=== PATIENT | female | born 1955 | race Caucasian/White ===

== ENCOUNTER 2016-10-29 19:09 | Emergency (ER) | payer MEDICAID ==
[~2016-10-29] VITALS: Ht 162.6 cm; Wt 73.5 kg
[2016-10-29 19:14] VITALS: BP_SYST 151
[2016-10-29] MEDS ORDERED: FAMOTIDINE PF 20 MG/2 ML VIAL IVP ONE (20:15)
[2016-10-29] MEDS ORDERED: MAG HYDROX/AL HYDROX/SIMETH 30 ML, BELLADONNA ALKALOIDS/PHENOBARB 10 ML, LIDOCAINE VISC... PO ONE ×3 (20:15)
[2016-10-29 20:28] LABS: BASOPHILS # (AUTO) 0.1 K/uL (0.0-0.2); BASOPHILS % (AUTO) 0.6 % (0.0-2.0); EOSINOPHILS # (AUTO) 0.1 K/uL (0.0-0.4); EOSINOPHILS % (AUTO) 1.1 % (0.0-4.0); HEMATOCRIT 38.6 % (36-48); HEMOGLOBIN 12.5 g/dL (12.0-16.0); LYMPHOCYTES # (AUTO) 4.1 K/uL (1.0-5.5); LYMPHOCYTES % (AUTO) 43.1 % (20.5-51.5); MEAN CORPUSCULAR HEMOGLOBIN 30 pg (27-31); MEAN CORPUSCULAR HGB CONC 33 % (32-36); MEAN CORPUSCULAR VOLUME 93 fL (79.0-98.0); MONOCYTES # (AUTO) 0.7 K/uL (0.0-1.0); MONOCYTES % (AUTO) 7.8 % (1.7-9.3); NEUTROPHILS # (AUTO) 4.6 K/uL (1.8-7.7); NEUTROPHILS % (AUTO) 47.4 % (40.0-70.0); PLATELET COUNT (AUTO) 234 K/uL (130-430); RED BLOOD CELL COUNT(AUTO) 4.17 MIL/uL (4.2-6.2); RED CELL DISTRIBUTION WIDTH 11.4 % (9.0-15.0); WHITE BLOOD COUNT (AUTO) 9.6 K/uL (4.8-10.8)
[2016-10-29 20:34] LABS: PROTHROMBIN TIME 10.8 SECS (9.5-12.5)
[2016-10-29 20:45] LABS: CREATININE 0.91 mg/dL (0.55-1.30); POTASSIUM 4.1 mmol/L (3.5-5.1)
[2016-10-29 20:49] LABS: ALBUMIN 3.5 g/dL (3.4-4.8); TOTAL BILIRUBIN 0.2 mg/dL (0.0-1.0); TOTAL PROTEIN, SERUM 7.5 g/dL (6.4-8.3)
[2016-10-29] MEDS ORDERED: HYDROmorphone 1 MG INJ. 1 MG/ML AMPUL IVP ONE (21:00)
[2016-10-29] MEDS ORDERED: IOHEXOL 100 ML IV ONE (21:28)
[2016-10-29] MEDS ORDERED: NACL 0.9% 1,000 ML IV ONE (22:15)
[2016-10-30 23:29] VITALS: BP_SYST 116
== END 2016-10-29 23:40 | disposition home or self-care (01) ==
LOC: SED 19:09
DX: K57.90 Diverticulosis of intestine, part unspecified, without perforation or abscess without bleeding (principal); K59.00 Constipation, unspecified; K21.9 Gastro-esophageal reflux disease without esophagitis; Z90.49 Acquired absence of other specified parts of digestive tract; Z90.89 Acquired absence of other organs; Z90.710 Acquired absence of both cervix and uterus; Z88.6 Allergy status to analgesic agent
CPT/HCPCS: 36415; 74177; 76830; 76857; 80053; 82150; 83690; 85025; 85610; 85730; 93005; 96361; 96374; 96375; 99285; J1170; J2001; J3490; J7030; Q9967

== ENCOUNTER 2016-10-30 21:38 | Inpatient (IN) | payer MEDICAID ==
[~2016-10-30] VITALS: Ht 160 cm; Wt 60.8 kg
--- NOTE | 2016-10-30 11:53 | NUR ---
Spoke to Dr. Suggs regarding patient pain management Dr. jerrod Mitchell 1 mg IVP Q6H PRN for moderate to severe pain (4-10). Addendum: 10/31/16 at 0106 by Maksim Mason RN wrong time, correct time should be @ 2153 on 10/30/2016. Addendum: 10/31/16 at 0107 by Maksim Mason RN correct time @ 6913 on 10/30/2016. KARIN.
[2016-10-30 21:40] VITALS: BP_SYST 161
--- NOTE | 2016-10-30 21:40 | NUR ---
Patient to ER bed 1 to gown for evaluation. Side rails up. Report given to Say ARANGO.
--- NOTE | 2016-10-30 21:48 | NUR ---
ER Dr. Riley at bedside examining patient.
--- NOTE | 2016-10-30 21:50 | NUR ---
Pt was here yesterday for epigastric pain that has came back and has been 10. Pt states that the pain is still having sharp epigastic pain all day, but radiates to the L flank and lower back. Pt states she has nausea with no vomitting or diarrhea. No dysuria. Will continue to monitor via monitoring tech. No other injuries or mentioned/noted.
[2016-10-30 22:09] LABS: BASOPHILS # (AUTO) 0.1 K/uL (0.0-0.2); BASOPHILS % (AUTO) 0.6 % (0.0-2.0); EOSINOPHILS # (AUTO) 0.1 K/uL (0.0-0.4); EOSINOPHILS % (AUTO) 0.8 % (0.0-4.0); HEMOGLOBIN 12.7 g/dL (12.0-16.0); LYMPHOCYTES # (AUTO) 3.7 K/uL (1.0-5.5); LYMPHOCYTES % (AUTO) 45.3 % (20.5-51.5); MEAN CORPUSCULAR HEMOGLOBIN 30 pg (27-31); MEAN CORPUSCULAR HGB CONC 34 % (32-36); MEAN CORPUSCULAR VOLUME 91 fL (79.0-98.0); MONOCYTES # (AUTO) 0.7 K/uL (0.0-1.0); MONOCYTES % (AUTO) 7.9 % (1.7-9.3); NEUTROPHILS # (AUTO) 3.8 K/uL (1.8-7.7); NEUTROPHILS % (AUTO) 45.4 % (40.0-70.0); PLATELET COUNT (AUTO) 253 K/uL (130-430); RED BLOOD CELL COUNT(AUTO) 4.19 MIL/uL (4.2-6.2); RED CELL DISTRIBUTION WIDTH 11.9 % (9.0-15.0); WHITE BLOOD COUNT (AUTO) 8.4 K/uL (4.8-10.8)
[2016-10-30] MEDS ORDERED: MORPHINE 4 MG/ML INJ. SYRINGE IVP ONE ×2 (22:15→23:00)
[2016-10-30] MEDS ORDERED: ONDANSETRON HCL 4 MG/2 ML VIAL IVP ONE (22:15)
[2016-10-30 22:17] LABS: CALCIUM 9.2 mg/dL (8.4-11.0); CREATININE 1.12 mg/dL (0.55-1.30); POTASSIUM 3.7 mmol/L (3.5-5.1)
[2016-10-30 22:22] LABS: ALBUMIN 3.6 g/dL (3.4-4.8); TOTAL BILIRUBIN 0.4 mg/dL (0.0-1.0); TOTAL PROTEIN, SERUM 7.8 g/dL (6.4-8.3)
[2016-10-30 22:29] LABS: BILIRUBIN,URINE NEGATIVE (NEGATIVE); CLARITY/URINE CLEAR (CLEAR); COLOR,URINE YELLOW (YELLOW); GLUCOSE,URINE NEGATIVE (NEGATIVE); KETONES,URINE NEGATIVE (NEGATIVE); LEUKOCYTE ESTERASE ,URINE NEGATIVE (NEGATIVE); NITRITE, URINE NEGATIVE (NEGATIVE); PH,URINE 6.5 (5.0-8.0); PROTEIN URINE NEGATIVE (NEGATIVE); UROBILINOGEN,URINE 0.2 (0.2-1.0)
--- NOTE | 2016-10-30 22:45 | NUR ---
Patient reports pain 9/10 15 minutes after administration of morphine. No adverse reactions noted. Will continue to monitor.
--- NOTE | 2016-10-30 22:50 | NUR ---
Pt states she is still in a lot of pain. Dr. Riley made aware.
[2016-10-30 23:16] LABS: BLOOD, URINE TRACE (NEGATIVE)
[2016-10-30 23:21] LABS: BACTERIA,URINE FEW /HPF (None Seen); MUCUS,URINE None Seen /LPF (None Seen); RBC,URINE 0-3 /HPF (0-3); WBC,URINE 0-3 /HPF (0-3)
--- NOTE | 2016-10-30 23:26 | NUR ---
Patient will be admitted to care of Dr. Suggs. Admitted to Telemetry unit. Will go to room 135. Belongings list completed. Summary report printed. Report will be given at bedside.
--- NOTE | 2016-10-30 23:27 | NUR ---
Initial note A/O x 3, no SOB, c/o epigastric pain, not relived by Morphine. Will contact Dr later. Skin warm to touch, IV at L AC, patent. No skin breakdown. Able to move all extremities. +2 radial or pedal pulses. No edema noted. Clear lung sounds and active bowel sounds. Patient stated she had BM yesterday and today. Will introduce patient to her room once transfer from 135 to [facility].
[2016-10-30 23:48] VITALS: BP_SYST 116
--- NOTE | 2016-10-30 23:53 | NUR ---
Spoke to Dr. Suggs regarding patient pain management ordered Dilaudid 1 mg IVP Q6H PRN for moderate to severe pain (4-10).
--- NOTE | 2016-10-31 | NUR ---
Dilaudid 1 mg IVP given for 01/19 @ epigastric region.
--- NOTE | 2016-10-31 00:20 | NUR ---
Patient stated pain decreased some.
--- NOTE | 2016-10-31 01:00 | NUR ---
Patient stated this medication (Dilaudid) worked. No pain.
--- NOTE | 2016-10-31 01:27 | NUR ---
CONSULT: CONSULT CALLED FOR DR. ZAPATA I SPOKE WITH TANOBIA EXPLORATION ENGINEER 22 DOCTOR ON CALLED: SAMANTHA REASON FOR CONSULT: CHEST PAIN REQUESTING DR: EILEEN NUMBER I CALLED: [phone]
--- NOTE | 2016-10-31 02:14 | NUR ---
Rounds Patient still awake. Informed patient it's too late for sleeping pill. Patient understood and will ask sleeping pill in AM. Patient denied SOB, chest pain, only very mild stomach pain. (05/21). Call light within reach, bed at lowest position, bed alarm on, will continue to monitor patient.
--- NOTE | 2016-10-31 04:00 | NUR ---
Rounds Patient was sleeping but easy to be awaken. Patient denied SOB, denied chest pain, but c/o mild stomach pain, patient is aware of next pain medication will be at 0600. Assisted patient to bathroom for urination. Call light within reach, bed at lowest position, bed alarm on, will continue to monitor patient.
[2016-10-31 04:10] VITALS: BP_SYST 109
[2016-10-31 05:37] VITALS: BP_SYST 109
[2016-10-31] MEDS: HYDROmorphone 1 MG INJ. 1 MG/ML AMPUL IVP PRN ×2 (06:18)
--- NOTE | 2016-10-31 06:18 | NUR ---
C/o abdomen pain 10/10 Dilaudid IVP given.
--- NOTE | 2016-10-31 06:47 | NUR ---
Closing note Patient stated pain decreased a lot after Dilaudid given (2/10). No SOB, no chest pain, mild pain at epigastric region. Skin warm to touch, IV at L AC patent, no s/s of infection. Call light within reach, bed at lowest position, bed alarm on, will give report to incoming nurse.
[2016-10-31 08:15] VITALS: BP_SYST 96
--- NOTE | 2016-10-31 08:15 | NUR ---
Assessment Patient awake, alert, oriented x4. Lungs clear. Respiration even and unlabored Trapeze?. NSR per telemetry monitoring. Patent 20 gauge saline lock in left antecubital. Denies any pain at this time. Patient stable.
--- NOTE | 2016-10-31 09:41 | NUR ---
GI Consult Called: for Dr. Jasso, regarding abdominal pain, ordered by Dr. Suggs, spoke with
[2016-10-31] MEDS ORDERED: ONDANSETRON HCL 4 MG/2 ML VIAL IVP PRN (09:45)
--- NOTE | 2016-10-31 10:45 | NUR ---
Routine Patient resting comfortably in bed. No acute distress noted. Patient stable.
--- NOTE | 2016-10-31 10:57 | NUR ---
ATTENDING MD DR ARELLANO CALLED, RE: CHANGE FREQUENCY OF THE PAIN MED FROM Q6H TO Q4H. SPOKE TO LEONELA
[2016-10-31] MEDS: D5NS 1,000 ML IV SCH (11:41)
[2016-10-31] MEDS ORDERED: HYDROmorphone 1 MG INJ. 1 MG/ML AMPUL IVP PRN (12:15)
[2016-10-31] MEDS ORDERED: HYDROmorphone 1 MG INJ. 1 MG/ML AMPUL ONE (12:25)
--- NOTE | 2016-10-31 12:25 | NUR ---
Routine Patient requested med for 9/10 abdominal pain. Due pain med given per order. Patient stable at this time.
[2016-10-31 12:30] VITALS: BP_SYST 112
--- NOTE | 2016-10-31 15:00 | NUR ---
Routine Patient asleep. No distress noted at this time.
[2016-10-31 16:10] VITALS: BP_SYST 114
--- NOTE | 2016-10-31 17:21 | NUR ---
Routine Patient resting in bed with daughter at bedside. Patient stable.
[2016-10-31] MEDS: HYDROmorphone 1 MG INJ. 1 MG/ML AMPUL IM PRN ×2 (18:02→22:06)
--- NOTE | 2016-10-31 18:05 | NUR ---
Routine Patient requested med for 9/10 abdominal pain. Due pain med given per order. Daughter at bedside. Patient stable throughout shift.
[2016-10-31 19:40] VITALS: BP_SYST 108
--- NOTE | 2016-10-31 19:40 | NUR ---
Initial Notes Pt is A/Ox4, pleasant and cooperative. Pt denies any pain or sob at this time. Pt is mostly Kyrgyz speaking. Pt's daughter is at bedside. Plan of care discussed with pt, pt verbalized understanding. Pt is currently on clear liquids but will be NPO at midnight for planned EGD in am. IV to RAC #20g with no s/s of infection/infiltration noted. VSS. Pt educated manager of administration light and correct back demonstration noted. Pt asked to call Nurse for assistance to restroom and out of bed. Safety measures in place, side rails up x3 with bed in lowest, locked position, bed alarm on at all times. Call light in hand. Will continue to monitor.
--- NOTE | 2016-10-31 19:50 | NUR ---
PAGED PAGED DOCTOR ARELLANO S/Roman DIXON
--- NOTE | 2016-10-31 19:55 | NUR ---
Spoke with MD Suggs Informed MD that pt requesting sleep aid. New order for Restoril 15mg received. New order noted and carried out.
[2016-10-31] MEDS ORDERED: TEMAZEPAM 15 MG CAPSULE PO PRN (20:00)
--- NOTE | 2016-10-31 22:08 | NUR ---
DILAUDID GIVEN Patient c/o mid abdomen pain 12/19, Dilaudid 1mg IVP given as ordered. No acute distress. Safety measure maintained. Call light within reached. Will continue to monitor.
--- NOTE | 2016-10-31 22:36 | NUR ---
REASSESS PAIN Abdomen pain 2/10 at this time. No acute distress. Safety measure maintained. Call light within reached. Continue to monitor.
[2016-11-01] VITALS (7 sets, daily range): BP systolic 98–121
--- NOTE | 2016-11-01 00:01 | NUR ---
Rounds Assisted pt to restroom with steady gait noted. Pt noted to urinate without difficulty. Assisted pt back into bed safely. All needs met at this time. Call light in reach. Will continue to monitor.
[2016-11-01] MEDS: HYDROmorphone 1 MG INJ. 1 MG/ML AMPUL IM PRN ×4 (02:16→18:21)
[2016-11-01] MEDS: D5NS 1,000 ML IV SCH ×2 (05:27→15:45)
--- NOTE | 2016-11-01 05:51 | NUR ---
Rounds/Anxiety Pt noted to have some anxiety, describing it as shakiness and sob. Heart monitor checked and pt is Sinus Rhythm with heart rate of 71 on monitor. Vital signs checked, stable: Blood pressure: 125/75, Heart rate 71, O2 on room air 99%, Afebrile 98.7. Pt stated that she is not anxious about her planned EGD for today but might be related to pain medication received. Las time pt given Dilaudid 1mg IVP for pain was at 0220. Pt states she feels better from talking to me, and vital signs are stable.
--- NOTE | 2016-11-01 06:27 | NUR ---
DILAUDID GIVEN Patient c/o mid abdomen pain 12/19, Dilaudid 1mg IVP given as ordered. No acute distress. Explained the possible side effect such as headache, dizziness. Educated patient to dangle at the bed first before getting up, verbally understanding. Safety measure maintained. Call light within reached. Will continue to monitor.
--- NOTE | 2016-11-01 06:35 | NUR ---
Closing Notes Pt resting in bed. No acute distress noted. Pt medicated earlier for abdominal pain 12/19 with pain medication ordered. IV intact. All needs met throughout shift. Will endorse care to am nurse.
[2016-11-01 06:36] LABS: BASOPHILS % (AUTO) 0.4 % (0.0-2.0); EOSINOPHILS # (AUTO) 0.1 K/uL (0.0-0.4); EOSINOPHILS % (AUTO) 1.6 % (0.0-4.0); HEMATOCRIT 33.8 % (36-48); HEMOGLOBIN 11.5 g/dL (12.0-16.0); LYMPHOCYTES # (AUTO) 3.4 K/uL (1.0-5.5); MEAN CORPUSCULAR HEMOGLOBIN 31 pg (27-31); MEAN CORPUSCULAR HGB CONC 34 % (32-36); MEAN CORPUSCULAR VOLUME 92 fL (79.0-98.0); MONOCYTES # (AUTO) 0.7 K/uL (0.0-1.0); MONOCYTES % (AUTO) 9.3 % (1.7-9.3); NEUTROPHILS # (AUTO) 3.3 K/uL (1.8-7.7); NEUTROPHILS % (AUTO) 44.7 % (40.0-70.0); PLATELET COUNT (AUTO) 204 K/uL (130-430); RED BLOOD CELL COUNT(AUTO) 3.68 MIL/uL (4.2-6.2); RED CELL DISTRIBUTION WIDTH 11.3 % (9.0-15.0); WHITE BLOOD COUNT (AUTO) 7.5 K/uL (4.8-10.8)
[2016-11-01 06:59] LABS: ALBUMIN 2.9 g/dL (3.4-4.8); CALCIUM 8.2 mg/dL (8.4-11.0); CREATININE 0.9 mg/dL (0.55-1.30); POTASSIUM 3.7 mmol/L (3.5-5.1); TOTAL BILIRUBIN 0.3 mg/dL (0.0-1.0); TOTAL PROTEIN, SERUM 6.5 g/dL (6.4-8.3)
--- NOTE | 2016-11-01 08:00 | NUR ---
NOTE PT RESTING IN BED WITH IVF'S INFUSING WELL THROUGH LEFT AC IV SITE. NO SOB/RESP DISTRESS OR PAIN/DISCOMFORT NOTED AT THIS TIME. CALL LIGHT WITHIN REACH.
[2016-11-01] MEDS ORDERED: MIDAZOLAM HCL 5 MG/5 ML VIAL ONE (09:18)
[2016-11-01] MEDS ORDERED: MEPERIDINE HCL/PF 50 MG/ML AMP ONE ×2 (09:19→11:20)
[2016-11-01] MEDS ORDERED: SIMETHICONE 40 MG/0.6 ML ML ONE (09:19)
--- NOTE | 2016-11-01 10:00 | NUR ---
NOTE PT HAS BEEN NPO SINCE MIDNIGHT FOR EGD STUDY THIS MORNING. PT RESTING IN BED. NO NEEDS NOTED AT THIS TIME. CALL LIGHT WITHIN REACH.
[2016-11-01] MEDS: MIDAZOLAM HCL 5 MG/5 ML VIAL ONE ×2 (11:53→12:56)
[2016-11-01] MEDS: MEPERIDINE HCL/PF 50 MG/ML AMP ONE ×2 (11:56→12:56)
--- NOTE | 2016-11-01 12:00 | NUR ---
NOTE PT WAS TAKEN TO GI LAB FOR EGD VIA WHEELCHAIR AT 1100AM AND BROUGHT BACK TO HER ROOM 1150AM. PT DROWSY AND WAS ASSISTED TO THE RESTROOM ON CAOMING BACK TO THE ROOM TO VOID. IV IN LEFT AC INTACT AND PATENT. CALL LIGHT WITHIN REACH. PT INSTRUCTED TO CALL FOR ASSISTANCE WHEN GETTING OOB TO RESTROOM. PT VERBALISES UNDERSTANDING. PT HAS CLEAR LIQUID TRAY IN FRONT OF HER AT THIS TIME, STATES THAT IS ALL SHE CAN TOLERATE AT THIS TIME. CALL LIGHT WITHIN REACH.
[2016-11-01] MEDS ORDERED: PANTOPRAZOLE SODIUM 40 MG TAB PO ONE (13:00)
--- NOTE | 2016-11-01 14:00 | NUR ---
NOTE PT WAS GIVEN MORPHINE 2MG IVP AT THIS TIME FOR ABDOMINAL PAIN. PT RESTING IN BED AND NO SOB/RESP DISTRESS OR PAIN/DISCOMFORT NOTED AT THIS TIME. CALL LIGHT WITHIN REACH.
--- NOTE | 2016-11-01 16:00 | NUR ---
NOTE PT STATED HER RIDE WILL COME IN LATE, SHE HAS NO ONE ELSE TO GIVE HER RIDE HOME AT THIS TIME. PT WILL TRY SOFT BLAND/LOW FIBRE DIET FOR DINNER. SO FAR ALL PT HAS BEEN ABLE TO TOLERATE IS JUICES AND BROTH. NO N/V NOTED. CALL LIGHT WITHIN REACH. TELE UNIT HAD BEEN REMOVED AND RETURNED TO ELECTRICIAN JOURNEYMAN WIREMAN.
--- NOTE | 2016-11-01 18:30 | NUR ---
NOTE PT WAS GIVEN DISCHARGE INSTRUCTIONS AND PRESCRIPTION FOR PROTONIX PO. PT AND PT'S DAUGHTER NOW SAY PT IS IN TOO MUCH PAIN TO GO HOME NOW. PT HAD A BITE OR TWO OF SOLID FOOD FOR DINNER AND EXPERIENCED SEVERE ABDOMINAL PAIN. DR ARELLANO WAS CALLED PER PT'S AND PT'S DAUGHTER'S REQUEST.
[2016-11-01] MEDS ORDERED: DIATR MEGLU/DIATRIZ SOD 30 ML SOLUTION PO ONE (19:31)
--- NOTE | 2016-11-01 19:40 | NUR ---
NOTE DR ARELLANO CALLED BACK. DISCHARGE TO BE HELD AND CT OF ABDOMEN/PELVIS WITH ORAL CONTRAST WAS ORDERED. PT AND PT'S DAUGHTER WAS NOTIFIED. PT HAD BEEN GIVEN DILAUDID 1MG IVP AT 1730. PAIN NOW MANAGEABLE. NO SOB/RESP DISTRESS OR PAIN/DISCOMFORT NOTED AT THIS TIME. CALL LIGHT WITHIN REACH. PT IS DRESSED IN STREET CLOTHES AT THIS TIME. PT STILL HAS HER LEFT AC IV - WHICH IS INTACT AND PATENT AT THIS TIME.
--- NOTE | 2016-11-01 19:50 | NUR ---
INITIAL NOTE PT. RECEIVED ALERT AND ORIENTED, NO S/S OF SOB OR DISTRESS NOTED. VSS. PT. STATES PAIN MEDICATION GIVEN BY DAY NURSE WAS EFFECTIVE IN REDUCING HER PAIN LEVEL. NOW RATES PAIN AT A 5/10. ENCOURAGED PT. TO USE DEEP BREATHING AND RELAXATION TECHNIQUES. IV ACCESS NOTED TO LEFT AC, NO REDNESS OR SWELLING TO THE SITE. FLUSHES WELL. DAUGHTER IS AT THE BEDSIDE. PLAN OF CARE HAS BEEN DISCUSSED, BOTH VERBALIZE UNDERSTANDING. EDUCATED PT. ON USE OF THE CALL LIGHT SYSTEM AND ENCOURAGED TO USE IT IF ANY ASSISTANCE IS NEEDED. VERBALIZES UNDERSTANDING. WILL CONTINUE TO MONITOR FRO CHANGES. SAFETY AND FALL PRECAUTIONS IN PLACE. CALL LIGHT IN REACH. ALARM IS NOT ON THIS TIME DAUGHTER IS PRESENT AT THE BEDSIDE AND STATES SHE WILL BE HERE TO ASSIST. WILL TURN ON THE ALARM WHEN THE DAUGHTER LEAVES FOR SAFETY AND FALL PRECAUTIONS.
--- NOTE | 2016-11-01 21:02 | NUR ---
RN NOTES PT. IN RADIOLOGY FOR CT SCAN.
--- NOTE | 2016-11-01 21:14 | NUR ---
RN NOTES PT. BROUGHT BACK BY BRIDAL SALES CONSULTANT. RESTING IN BED COMFORTABLY AT THIS TIME. DAUGHTER AT THE BEDSIDE.
--- NOTE | 2016-11-01 22:35 | NUR ---
ROUNDS PT. STATES SHE IS HAVING SEVERE PAIN AT THIS TIME. WILL MEDICATE FOR PAIN ORDERED. ALL OTHER NEEDS MET AT THIS TIME. IV FLUIDS INFUSING WELL ORDERED. SAFETY AND FALL PRECAUTIONS IN PLACE, CALL LIGHT IN REACH.
--- NOTE | 2016-11-01 22:55 | NUR ---
rn note- medication dilaudid 1 mg was given at 2255 computer did not save scan. manually entered barcode on computer.
[2016-11-02] VITALS (8 sets, daily range): BP systolic 101–128
--- NOTE | 2016-11-02 00:20 | NUR ---
ROUNDS PT. AMBULATED TO THE RESTROOM WITH STEADY GAIT. BACK TO BED IN A COMFORTABLE POSITION. NO SIGNS OF ACUTE DISTRESS NOTED. STATES PAIN MEDICATION WAS EFFECTIVE IN REDUCING PAIN LEVEL. ALL NEEDS MET AT THIS TIME. WILL CONTINUE TO MONITOR FOR CHANGES. SAFETY AND FALL PRECAUTIONS IN PLACE. CALL LIGHT IN REACH.
--- NOTE | 2016-11-02 02:10 | NUR ---
rounds pt. resting in bed with eyes closed. chest rise and fall noted. no s/s of sob or distress. no facial grimacing indicating pain. iv fluids continue to infuse well. will continue to monitor for any changes. safety and fall precautions in place. call light in reach.
[2016-11-02] MEDS: HYDROmorphone 1 MG INJ. 1 MG/ML AMPUL IVP PRN ×5 (03:09→18:53)
[2016-11-02] MEDS: D5NS 1,000 ML IV SCH ×3 (03:20→16:17)
--- NOTE | 2016-11-02 04:10 | NUR ---
ROUNDS PATIENT RESTING IN BED WITH EYES CLOSED. EASILY AROUSES. VSS. PAIN MEDICATION WAS GIVEN FOR PAIN. PT. COMFORTABLE AT THIS TIME. WILL CONTINUE TO MONITOR FOR CHANGES. SAFETY AND FALL PRECAUTIONS IN PLACE. CALL LIGHT IN REACH.
--- NOTE | 2016-11-02 06:36 | NUR ---
CLOSING NOTES PT. RESTING IN BED QUIETLY. NO S/S OF SOB OR DISTRESS NOTED. NO FACIAL GRIMACING INDICATING PAIN. BREATHING IS EVEN AND UNLABORED. IV FLUIDS CONTINUE TO INFUSE WELL WITH NO SIGNS OF INFILTRATION TO THE IV SITE. ALL NECESSARY NEEDS WERE MET THROUGHOUT THE SHIFT. SAFETY AND FALL PRECAUTIONS WERE MAINTAINED. WILL ENDORSE CARE TO AM NURSE. CALL LIGHT IN REACH, BED IN LOWEST LOCKED POSITION.
--- NOTE | 2016-11-02 07:44 | NUR ---
Nutrition Update Pablo Scale 18 noted. Pt admitted for: Chest pain. Diet: Soft Low fiber [place] diet. BMI: 23.7 kg/m2 RD to follow per nutrition care standards.
--- NOTE | 2016-11-02 08:00 | NUR ---
AM notes- sitting in a chair. pt awake, alert and oriented. complain of mild abdominal pain at this time. ambulate to the bathroom with steady gait. ivf infusing well. no distress noted.
[2016-11-02] MEDS: PANTOPRAZOLE SODIUM 40 MG TAB PO SCH (08:33)
--- NOTE | 2016-11-02 10:21 | NUR ---
notes- resting in bed, pain better afetr pain medication.
--- NOTE | 2016-11-02 10:48 | NUR ---
UROLOGY CONSULT CALLED TO FREDA PAT PUNCH OPERATOR, RE: AIR IN BLADDER, NO ESPINOZA. SPOKE TO ZACK
--- NOTE | 2016-11-02 11:17 | NUR ---
notes- spoke to Dr. devin hernandez (PA) made aware of consult and ct result. Ordered to do UA and UC.
[2016-11-02 12:39] LABS: BILIRUBIN,URINE NEGATIVE (NEGATIVE); BLOOD, URINE 1+ (NEGATIVE); CLARITY/URINE CLEAR (CLEAR); COLOR,URINE YELLOW (YELLOW); GLUCOSE,URINE NEGATIVE (NEGATIVE); KETONES,URINE NEGATIVE (NEGATIVE); LEUKOCYTE ESTERASE ,URINE TRACE (NEGATIVE); NITRITE, URINE NEGATIVE (NEGATIVE); PROTEIN URINE NEGATIVE (NEGATIVE); UROBILINOGEN,URINE 0.2 (0.2-1.0)
[2016-11-02 12:54] LABS: BACTERIA,URINE FEW /HPF (None Seen); MUCUS,URINE 1+ /LPF (None Seen)
--- NOTE | 2016-11-02 14:49 | NUR ---
rounds- Resting in bed at this time. no distress noted. pain controlled at this time.
--- NOTE | 2016-11-02 14:50 | NUR ---
notes- sitting in the chair, family at bedside. complain of moderate back pain and on her rt leg. routine pain meds given.
[2016-11-02] MEDS ORDERED: IOHEXOL 100 ML IV ONE (17:55)
--- NOTE | 2016-11-02 18:17 | NUR ---
1730- iv is leaking started a new one on the right ac no. 20. 1800- Pt went to Ct scan. no distress noted.
--- NOTE | 2016-11-02 19:04 | NUR ---
closing notes- In bed awake, complain of pain. medicated as ordered. ivf infusing well. enc. to call at all times. no distress noted. all needs meet. will endorse
--- NOTE | 2016-11-02 19:30 | NUR ---
opening note report given at bedside. Patient is awake and laying in bed. patient has call light with her. patient has no other needs at this time. pain was reassessed and imputed. Addendum: 11/03/16 at 0749 by Bri Johnson RN INITIAL NOTE PT LAYING IN BED, RESTING, EASY TO AROUSE, BREATHING EVEN AND UNLABORED, NO S/S OF DISTRESS OR COMPLAINT OF PAIN AT THIS TIME, IV FLUIDS INFUSING TO RAC AT ORDERED RATE, NO S/S OF INFILTRATION NOTED, PLAN OF CARE, DISCUSSED, PT VERBALIZED UNDERSTANDING, SAFETY MEASURES IN PLACE, PT REFUSES BED ALARM AT THIS TIME DESPITE EDUCATION REGARDING PAIN MEDICATION, BED IN LOS POSITION AND LOCKED WILL FOLLOW UP
--- NOTE | 2016-11-02 20:38 | NUR ---
FREDA Hammond at beside Mr.Pike BARBA in with patient states we are pending labs. patient is awake and sitting in bed.Patient is requesting bed alarm to be off.
--- NOTE | 2016-11-02 21:00 | NUR ---
bladder scan Patient stating that she feels like she is retaining urine. Bladder scan done 233 ml showed retained. Educated to stay hydrated and increase fluid intake and we will continue to monitor her urine out out. Addendum: 11/02/16 at 2342 by Buffy Reilly RN please disregard note wrong patient
--- NOTE | 2016-11-02 21:15 | NUR ---
PAGING Paging attending MD to report pt.'s "09/18" pain to abdomen and right lower back at this time. Will wait for MD to call back to request for orders. Addendum: 11/02/16 at 2124 by Rosemary Gamino RN PAGING Paging DR. BUTLER who is covering for DR. ARELLANO to report pt.'s "10" pain to abdomen and right lower back at this time. Will wait for MD to call back to request for orders.
--- NOTE | 2016-11-02 21:19 | NUR ---
paged paged for Dr Suggs, dialed . s/w Melissa, Dr Fregoso is on-call.
--- NOTE | 2016-11-02 21:34 | NUR ---
PATIENT C/O SEVERE PAIN Patient is now moaning and groaning complaining of severe "10/10" pain. Will wait for MD to call back to notify and request for orders.
--- NOTE | 2016-11-02 21:39 | NUR ---
paged second page for Dr Fregoso, dialed . s/w Chante, Dr Fregoso is on-call for Dr Suggs.
--- NOTE | 2016-11-02 21:47 | NUR ---
SPOKE TO DR. FREGOSO WITH NEW ORDERS RECEIVED Reported patient's current "10/10" pain to Dr. Fregoso. Reported patient's current order for Dilaudid 1mg IVP as ordered PRN every four hours for severe 7-[address] Fregoso gave new orders: Dilaudid 2mg IVP every four hours as needed for severe 7-10 pain and Dilaudid 1mg IVP every six hours as needed for 4-6 pain. Will carry out.
[2016-11-02] MEDS ORDERED: HYDROmorphone 1 MG INJ. 1 MG/ML AMPUL IVP PRN (22:00)
[2016-11-02] MEDS: HYDROmorphone 2 MG/ML VIAL IVP PRN (22:05)
--- NOTE | 2016-11-02 22:05 | NUR ---
Pain medication Patient is stating pain level is 10/10 medicated as ordered please see Emar. Patient is still refusing bed alarm, educated on safety and to use the call light for assistance to restroom. patient verbalized understanding.
--- NOTE | 2016-11-02 22:35 | NUR ---
Re assessed pain level Patient states pain has improved now is 4/10. Patient also states she is experiencing some vision changed assessed her pupils patients pupils are PERRLA printed out and educated on side effects of pain medication. informed patient will monitor and educated to use call light for assistance.
--- NOTE | 2016-11-03 00:35 | NUR ---
RN rounding Patient appears to be resting. Patients breathing is equal and unlabored. Patient is still refusing to have bed alarm. Educed patient on safety and to use call light for assistance patient verbalized understanding,
[2016-11-03] MEDS: HYDROmorphone 2 MG/ML VIAL IVP PRN ×5 (02:24→22:01)
--- NOTE | 2016-11-03 02:35 | NUR ---
pain medication Patient states pain is 9/10. Medicated as ordered. Educated patient to use call light for assistance , patient is still refusing to have bed alarm on.
--- NOTE | 2016-11-03 02:54 | NUR ---
ROUNDS Patient is resting quietly in bed with no s/s of acute distress. Respirations are even and unlabored with visible chest rise and fall. Safety precautions in place. Bed alarm remains off as requested by patient but patient has been educated and is encouraged regarding fall risk precautions due to medications. Call light to right hand. IVF are infusing as ordered. Will continue to monitor.
[2016-11-03] MEDS: D5NS 1,000 ML IV SCH ×2 (03:41→15:24)
[2016-11-03 04:15] VITALS: BP_SYST 107
--- NOTE | 2016-11-03 05:40 | NUR ---
Pain medication Patient was assisted to bathroom. Patient is stating should would like something for her pain that is 10/19 medicated as ordered please see emar. Educated on safety precautions. Addendum: 11/03/16 at 0542 by Buffy Reilly RN patient is still refusing bed alarm
--- NOTE | 2016-11-03 06:44 | NUR ---
closing note Patient appears to be resting, breathing is unlabored and equal with eyes closed. Patient still refuses to have bed alarm on, bed is in lowest position. Report will endorse to day nurse.
--- NOTE | 2016-11-03 08:00 | NUR ---
OPENING NOTE PT LAYING IN BED, EASY TO AROUSE, NO S/S OF DISTRESS OR PAIN AT THIS TIME, VSS, IV FLUIDS INFUSING TO RAC, NO S/S OF INFILTRATION NOTED, SAFETY MEASURES IN PLACE, CALL LIGHT WITHIN REACH, WILL FOLLOW UP
[2016-11-03 08:04] VITALS: BP_SYST 108
[2016-11-03] MEDS: PANTOPRAZOLE SODIUM 40 MG TAB PO SCH (08:11)
--- NOTE | 2016-11-03 09:15 | NUR ---
PATIENT COMPLAINS OF PAIN 10/10 TO ABDOMEN, PAIN MEDICATION ADMINISTERED FOR THAT PAIN LEVEL, WILL FOLLOW UP. PT ENCOURAGED TO CALL FOR ASSISTANCE DUE TO PAIN MEDICATION ADMINISTRATION, PT VERBALIZED UNDERSTANDING BUT REFUSED BED ALARM DESPITE EDUCATION, SAFETY MEASURES IN PLACE, CALL LIGHT WITHIN REACH, WILL FOLLOW UP
--- NOTE | 2016-11-03 11:20 | NUR ---
ROUNDS PT LAYING IN BED, RESTING, EVEN RISE AND FALL OF CHEST NOTED, NO S/S OF ACUTE DISTRESS OR PAIN, VSS, SAFETY MEASURES IN PLACE, CALL LIGHT WITHIN REACH, WILL CONTINUE TO MONITOR
[2016-11-03 12:06] VITALS: BP_SYST 93
--- NOTE | 2016-11-03 12:30 | NUR ---
DR BUTLER MAKING ROUNDS, UPDATES ON PATIENT STATUS AND PT ASSESSED, NEW ORDER RECEIVED, PATIENT MADE AWARE AND VERBALIZED UNDERSTANDING, WILL CONTINUE TO MONITOR
[2016-11-03] MEDS ORDERED: IOHEXOL 100 ML IV ONE (14:20)
--- NOTE | 2016-11-03 14:30 | NUR ---
DR BUTLER AND GLASSWORKER AGREED TO POSTPONE DIAGNOSTIC PROCEDURE UNTIL TOMORROW, PATIENT AND FAMILY MADE AWARE, DAUGHTER AT BEDSIDE, FAMILY UPDATED BY DR BUTLER ON PATIENTS STATUS AND PLAN OF CARE, FAMILY VERBALIZED UNDERSTANDING AND AIDED IN TRANSLATION, WILL CONTINUE TO MONITOR
[2016-11-03 16:19] VITALS: BP_SYST 112
--- NOTE | 2016-11-03 16:19 | NUR ---
ROUNDS PT LAYING IN BED RESTING, EVEN RISE AND FALL OF CHEST NOTED, NO S/S OF DISTRESS OR PAIN, CALL LIGHT WITHIN REACH, BED IN LOW POSITION AND LOCKED, WILL CONTINUE TO MONITOR
--- NOTE | 2016-11-03 18:25 | NUR ---
PT COMPLAINS OF PAIN 10/10 TO ABDOMEN AND BACK PAIN MEDICATION ADMINISTERED, PAT TOLERATED, DAUGHTER AT BEDSIDE, PT ENCOURAGED TO CALL FOR ASSISTANCE DUE TO PAIN AND MEDICATION, PT AGREED BUT REFUSED BED ALARM, SAFETY MEASURES IN PLACE CALL LIGHT WITHIN REACH, BED IN LOW POSITION AND LOCKED, WILL CONTINUE TO MONITOR
--- NOTE | 2016-11-03 18:42 | NUR ---
CLOSING NOTE PT LAYING IN BED, FAMILY AT BEDSIDE, PT AWAKE, ALERT AND ORIENTED, PAIN MEDICATION WAS RECENTLY ADMINISTERED, PT DENIES ANY PAIN AT THIS TIME, IV FLUIDS INFUSING TO RAC AT ORDER RATE, NO S/S OF INFILTRATION NOTED, ALL NEEDS ATTENDED TO THROUGHOUT SHIFT, SAFETY MEASURES MAINTAINED, PT REFUSES BED ALARM DESPITE EDUCATION, BED IN LOW POSITION AND LOCKED, CALL LIGHT WITHIN REACH, WILL GIVE REPORT TO FOLLOWING SHIFT.
--- NOTE | 2016-11-03 19:47 | NUR ---
OPENING NOTE REPORT WAS ENDORSED BY DAY NURSE AT BEDSIDE. PATIENT IS AWAKE AND LAYING IN BED. BED IN LOWEST POSITION, CALL LIGHT IS WITH PATIENT.
--- NOTE | 2016-11-03 20:24 | NUR ---
PAGED PAGED TERESSA BLACKMAN AT [phone]REZVANI DSOUZA FARHAD SAFETY INSPECTOR.
--- NOTE | 2016-11-03 20:26 | NUR ---
PAGING DR. FREGOSO Paging Dr. Fregoso to report patient's order for Dilaudid 2mg IVP as needed every three hours for "4-10" pain does not meet hospital policy. Will wait for MD to call back and request clarification of order.
--- NOTE | 2016-11-03 20:44 | NUR ---
SPOKE TO DR. FREGOSO WITH NEW ORDERS RECEIVED Spoke to Dr. Fregoso and reported current order for Dilaudid 2mg IVP every three hours as needed for pain of 4-10 does not meet hospital policy for pain management. Dr. Fregoso okayed and ordered: Dilaudid 2mg IVP every three hours as needed for severe 7-10 pain. Will carry out.
--- NOTE | 2016-11-03 21:40 | NUR ---
consent Patient is awake and laying in bed. Patients consent was signed and placed in chart. Patient verbalized understanding no questions at this time, and states she was educated on procedure. Patient is still refusing bed alarm at this time educated on safety precautions and to use call light for assistance.
[2016-11-03 21:45] VITALS: BP_SYST 105
--- NOTE | 2016-11-03 22:00 | NUR ---
Pain medication Patient is complain of severe pain at this time. Medicated as order please see EMAR. Patient was educated on safety precautions. Patient is refusing bed alarm on. Educated recreational sports director light for assistance. Patients bed is in lowest position, call light is with patient.
[2016-11-03 23:34] VITALS: BP_SYST 109
--- NOTE | 2016-11-04 | NUR ---
NPO Patient was informed she is Nothing by mouth after midnight for testing tomorrow. All fluids and food removed from bed side table.Patient appears tracy resting at this time with eyes closed, breathing is not labored and equal. No other needs at this time.
[2016-11-04] MEDS: D5NS 1,000 ML IV SCH ×3 (00:26→21:30)
--- NOTE | 2016-11-04 01:40 | NUR ---
RN rounding Patient appears to be resting with eyes closed, breathing is equal and unlabored. Patient has bed in lowest position, call light is with patient,patient is refusing bed alarm.
[2016-11-04] MEDS: HYDROmorphone 2 MG/ML VIAL IVP PRN ×4 (03:21→23:58)
--- NOTE | 2016-11-04 03:26 | NUR ---
PAIN MEDICATION PATIENT REQUESTING PAIN MEDICATION. PATIENT STATES PAIN IS 10/10 MEDICATED ORDERED. PATIENT IS LAYING IN BED AWAKE, BED IN LOWEST POSITION, REFUSING BED ALARM TO BE ON. DISTRICT MEDICAL EXAMINER AT BEDSIDE DOING VITALS.
[2016-11-04 03:58] VITALS: BP_SYST 102
--- NOTE | 2016-11-04 04:39 | NUR ---
IV PUMP PATIENT CALLED FOR IV PUMP BEEPING FLUSHED LINE. PATIENT IS AWAKE AND LAYING IN BED, REFUSING BED ALARM AT THIS TIME, BED IN LOWEST POSITION, CALL LIGHT IS WITH PATIENT.
[2016-11-04 06:45] LABS: BASOPHILS % (AUTO) 0.4 % (0.0-2.0); EOSINOPHILS # (AUTO) 0.2 K/uL (0.0-0.4); EOSINOPHILS % (AUTO) 2.6 % (0.0-4.0); HEMATOCRIT 34.5 % (36-48); HEMOGLOBIN 11.4 g/dL (12.0-16.0); LYMPHOCYTES # (AUTO) 2.4 K/uL (1.0-5.5); LYMPHOCYTES % (AUTO) 36.2 % (20.5-51.5); MEAN CORPUSCULAR HEMOGLOBIN 30 pg (27-31); MEAN CORPUSCULAR HGB CONC 33 % (32-36); MEAN CORPUSCULAR VOLUME 91 fL (79.0-98.0); MONOCYTES # (AUTO) 0.6 K/uL (0.0-1.0); NEUTROPHILS # (AUTO) 3.5 K/uL (1.8-7.7); NEUTROPHILS % (AUTO) 51.8 % (40.0-70.0); PLATELET COUNT (AUTO) 211 K/uL (130-430); RED BLOOD CELL COUNT(AUTO) 3.79 MIL/uL (4.2-6.2); RED CELL DISTRIBUTION WIDTH 11.2 % (9.0-15.0); WHITE BLOOD COUNT (AUTO) 6.7 K/uL (4.8-10.8)
--- NOTE | 2016-11-04 06:51 | NUR ---
closing note Patient is awake laying in bed. Patient is stable breathing is unlabored and even. Patients IV site was reinforced with tape. Educated on safety precautions. Patient has bed in lowest position, patient is refusing bed alarm. Report will be endorse to day nurse at bedside.
[2016-11-04 07:06] LABS: ALBUMIN 2.8 g/dL (3.4-4.8); CALCIUM 8.7 mg/dL (8.4-11.0); CREATININE 0.82 mg/dL (0.55-1.30); TOTAL BILIRUBIN 0.2 mg/dL (0.0-1.0); TOTAL PROTEIN, SERUM 6.9 g/dL (6.4-8.3)
--- NOTE | 2016-11-04 07:16 | NUR ---
OPENING NOTE RECEIVED REPORT FROM PROCESS STEWARD NURSE. PATIENT IS RESTING COMFORTABLY, NO COMPLAINTS OF PAIN AT THIS TIME. PATIENT HAS NO NOTABLE SIGNS OF DISTRESS AT THIS TIME. PATIENT AWAITING CTA OF ABDOMEN FOR PAIN AFTER EATING. PATIENT NPO FOR THIS EXAM. CONSENT IS SIGNED AND IN THE CHART WHEN READY. PATIENTS BED IN LOWEST POSITION, CALL LIGHT WITHIN REACH, AND SIDE RAILS ARE UP FOR SAFETY. WILL CONTINUE TO MONITOR PATIENT FOR CHANGES IN STATUS.
[2016-11-04 08:41] VITALS: BP_SYST 116
--- NOTE | 2016-11-04 09:16 | NUR ---
NOTE PATIENTS 0900 MEDICATIONS HELD UNTIL AFTER CTA OF ABDOMEN. NPO FOR TEST.
--- NOTE | 2016-11-04 10:25 | NUR ---
1000 NOTE PATIENT IS RESTING COMFORTABLY, NO COMPLAINTS OF PAIN AT THIS TIME. PATIENT HAS NO NOTABLE SIGNS OF DISTRESS AT THIS TIME. PATIENT AWAITING CTA OF ABDOMEN FOR PAIN AFTER EATING. PATIENT NPO FOR THIS EXAM. CONSENT IS SIGNED AND IN THE CHART WHEN READY. PATIENTS BED IN LOWEST POSITION, CALL LIGHT WITHIN REACH, AND SIDE RAILS ARE UP FOR SAFETY. WILL CONTINUE TO MONITOR PATIENT FOR CHANGES IN STATUS.
--- NOTE | 2016-11-04 11:54 | NUR ---
1200 NOTE PATIENT IS RESTING COMFORTABLY, COMPLAINTS OF PAIN AT 9/10, MEDICATED FOR PAIN, REASSESSED AT 5/10, TOLERABLE AT THIS TIME PER PATIENT. PATIENT HAS NO NOTABLE SIGNS OF DISTRESS AT THIS TIME. PATIENT AWAITING CTA OF ABDOMEN FOR PAIN AFTER EATING. PATIENT NPO FOR THIS EXAM. CONSENT IS SIGNED AND IN THE CHART WHEN READY. PATIENTS BED IN LOWEST POSITION, CALL LIGHT WITHIN REACH, AND SIDE RAILS ARE UP FOR SAFETY. WILL CONTINUE TO MONITOR PATIENT FOR CHANGES IN STATUS.
[2016-11-04 12:00] VITALS: BP_SYST 120
--- NOTE | 2016-11-04 14:30 | NUR ---
1400 NOTE PATIENT IS RESTING COMFORTABLY, COMPLAINTS OF PAIN AT 9/10, MEDICATED FOR PAIN, REASSESSED AT 5/10, TOLERABLE AT THIS TIME PER PATIENT. PATIENT HAS NO NOTABLE SIGNS OF DISTRESS AT THIS TIME. RADIOLOGY WAS CALLED REGARDING CTA, PATIENT CTA WAS CANCELLED AFTER DR. MALIK AND DR. BUTLER SPOKE. PATIENT AWARE. PATIENT MET WITH DR. TAMAYO. DIET ORDER WAS CHANGED TO SOFT/ LOW FIBER DIET. PATIENTS BED IN LOWEST POSITION, CALL LIGHT WITHIN REACH, AND SIDE RAILS ARE UP FOR SAFETY. WILL CONTINUE TO MONITOR PATIENT FOR CHANGES IN STATUS.
--- NOTE | 2016-11-04 15:29 | NUR ---
NOTE PATIENT FAMILY STATES PATIENT HAS NOT EATEN, WOULD LIKE FOOD SOON POSSIBLE. PATIENTS ORDERS ARE FOR SOFT LOW FIBER DIET PLACED BY DR. TAMAYO. PATIENT PROVIDED WITH APPLESAUCE AND JELLO, DIETARY CALLED FOR EARLY TRAY. WILL FOLLOW UP.
[2016-11-04 16:00] VITALS: BP_SYST 123
--- NOTE | 2016-11-04 16:25 | NUR ---
1600 NOTE PATIENT IS RESTING COMFORTABLY, PATIENT IS SLEEPING. PATIENT HAS NO NOTABLE SIGNS OF DISTRESS AT THIS TIME. DIET ORDER WAS CHANGED TO SOFT/ LOW FIBER DIET. PATIENT RECEIVED DINNER TRAY, AND SNACKS. PATIENTS BED IN LOWEST POSITION, CALL LIGHT WITHIN REACH, AND SIDE RAILS ARE UP FOR SAFETY. WILL CONTINUE TO MONITOR PATIENT FOR CHANGES IN STATUS.
[2016-11-04] MEDS: SUCRALFATE 1 GM TABLET PO SCH ×3 (17:00→21:29)
[2016-11-04] MEDS: PANTOPRAZOLE SODIUM 40 MG TAB PO SCH (18:07)
--- NOTE | 2016-11-04 19:20 | NUR ---
CLOSING NOTE/COMPLAINT FROM DAUGHTER PATIENT COMPLAINING OF PAIN AT 10/10 IN THE UPPER ABDOMEN. MEDICATED WITH DILAUDID FOR PAIN MANAGEMENT. DAUGHTER WANTED TO KNOW WHAT HER MOTHERS PLAN OF CARE WAS. IT WAS DISCUSSED ABOUT THE MEDICATION WE HAVE PROVIDED HER MOTHER FOR HER STOMACH PAIN. PATIENTS DAUGHTER STATES THAT SHE FEELS THOUGH HER MOTHER IS THE SAME SHE WAS 5 DAYS AGO WHEN SHE WAS ADMITTED AND THAT NOT ENOUGH HAS BEEN DONE EXCEPT GIVING MEDICATIONS FOR PAIN. WE DISCUSSED THE TESTING THAT SHE HAS RECEIVED FROM CT, XR, EGD WITH BIOPSY. GASTRITIS WAS THE FINDING IN WHICH WE WERE TREATING WITH CARAFATE AND PROTONIX. HER MDS BELKIS AND EILEEN HAVE SEEN THE PATIENT. DAUGHTER AWARE THAT PATIENT WAS NOT IN PAIN IN THE MORNING WHEN SHE WAS NPO FOR PENDING CTA, WHICH WAS LATER CANCELLED PER OIN. WHEN PATIENT BEGAN EATING, PAIN INCREASED. MD AWARE. PATIENT COMPLAIN OF INCREASED PRESSURE PAIN IN THE BLADDER, ENDORSED TO MICRO COMPUTER SPECIALIST RN.
--- NOTE | 2016-11-04 20:00 | NUR ---
ROUNDS PATIENT IN BED, VITALS STABLE, NO MORE PAIN AT THIS TIME. NEEDS ATTENDED. SAFETY MEASURES IN PLACED. BED IN LOW AND LOCKED POSITION. CALL LIGHT PLACED WITHIN REACH.
--- NOTE | 2016-11-05 | NUR ---
PATIENT RESTING: Patient resting quietly. No acute distress noted. Vital signs within normal range.
[2016-11-05 00:27] VITALS: BP_SYST 112
[2016-11-05] MEDS: HYDROmorphone 2 MG/ML VIAL IVP PRN ×2 (03:53→08:59)
[2016-11-05 04:00] VITALS: BP_SYST 117
--- NOTE | 2016-11-05 04:00 | NUR ---
PATIENT RESTING: Patient resting quietly. No acute distress noted. Vital signs within normal range.
--- NOTE | 2016-11-05 07:00 | NUR ---
CLOSING NOTES PATIENT REMAINED STABLE, ALL NEEDS ATTENDED TO, SAFETY MEASURES MAINTAINED. CALL LIGHT PLACED WITHIN REACH.
[2016-11-05] MEDS: SUCRALFATE 1 GM TABLET PO SCH ×2 (08:59→16:01)
[2016-11-05] MEDS: PANTOPRAZOLE SODIUM 40 MG TAB PO SCH (08:59)
[2016-11-05] MEDS: D5NS 1,000 ML IV SCH (09:00)
[2016-11-05 09:32] VITALS: BP_SYST 103
--- NOTE | 2016-11-05 10:23 | NUR ---
Patient up to shower this am. She was provided new gown and towels. She was able to complete activity independently. Patient IV fluid bag change. MD Suggs rounds at this time.
[2016-11-05 10:33] VITALS: BP_SYST 110
--- NOTE | 2016-11-05 10:39 | NUR ---
Discussed with patient going home. Says she has belongings, did not want to list. Will notify/request approval from Doctor Jasso for discharge.
--- NOTE | 2016-11-05 11:05 | NUR ---
Ammonia smell to urine output. Addendum: 11/05/16 at 1755 by Patrice Aguilera RN Disregard entry. Incorrect patient.
--- NOTE | 2016-11-05 11:08 | NUR ---
Large bm with half bottle mag citrate tolerated. Addendum: 11/05/16 at 1755 by Patrice Aguilera RN Disregard entry. Incorrect patient.
[2016-11-05 15:59] VITALS: BP_SYST 110
[2016-11-05] MEDS ORDERED: PANT40TA4 PO (16:29)
[2016-11-05] MEDS ORDERED: DICY10CA59 PO (16:30)
--- NOTE | 2016-11-05 16:52 | NUR ---
EXPLAINED INSTRUCTIONS TO PATIENT FOR TRANSITION HOME. REQUEST TO TALK TO PHARMACY AT THIS TIME. CALL RE: MEDICATION. GAVE PATIENT FOLLOW UP INFORMATION RE: MD VISITS (BELKIS ZAPATA) AND ESTABLISHING A PRIMARY DOCTOR TO MANAGE CARE. PATIENT VERBALIZED UNDERSTANDING AND WILL CALL DOCTOR ARELLANO TO ASK ABOUT BECOMING HIS PATIENT.
--- NOTE | 2016-11-05 17:53 | NUR ---
Patient dressed for transition home. Pharmacist call as medication information delivered to patient and requests explanation. Spoke with King, [employer].
--- NOTE | 2016-11-05 19:35 | NUR ---
D/C Patient Patient given medication reconciliation form and D/C instructions. Exit Care provided. Patient verbalized understanding. MD discussed with patient the results and treatment provided. Ambulatory with steady gait for discharge to home. Patient in stable condition, ID band removed. IV catheter removed, intact and dressing applied, no active bleeding. Rx of given. Patient educated on pain management. All belongings sent with patient.
--- NOTE | 2016-11-08 14:26 | NUR ---
Discharge Follow Up Phone Call: CLINIC SCHEDULER called pt ([phone]) and pt's dtr, Riya, answered the phone. Pt's dtr states that pt is doing well; pt's prescriptions have been filled; pt's dtr is going to speak with pt's PCP regarding switching pt to generic prescriptions due to cost; there are no questions regarding discharge or medication instructions; pt is following up with PCP at appointment today; pt's dtr is working on obtaining a [facility] for pt that accepts [facility]. CLINIC SCHEDULER recommended that pt's dtr talks with PCP regarding [facility] recommendation. Pt's dtr did not express any other needs or concerns and denied the need for additional follow up at this time. No further follow up phone calls required at this time.
== END 2016-11-05 19:35 | disposition home or self-care (01) | DRG 241 ==
LOC: SED 21:38 → STU 22:53 → SMU 11-01 20:35
PROVIDERS: ADMIT Internal Medicine Hospice and Palliative Medicine; ATTEND Internal Medicine Hospice and Palliative Medicine
PROC: 0DB68ZX Excision of Stomach, Via Natural or Artificial Opening Endoscopic, Diagnostic (ICD-10-PCS; principal; 2016-11-01 11:00)
DX: K29.70 Gastritis, unspecified, without bleeding (principal); Q23.1 Congenital insufficiency of aortic valve; K21.9 Gastro-esophageal reflux disease without esophagitis; K44.9 Diaphragmatic hernia without obstruction or gangrene; Z80.8 Family history of malignant neoplasm of other organs or systems; Z88.6 Allergy status to analgesic agent; Z90.49 Acquired absence of other specified parts of digestive tract
CPT/HCPCS: 36415; 43239; 71010; 76700-TC; 80053; 81000-TC; 82550-TC; 83690-TC; 83880; 84484; 85025; 85610-TC; 85730-TC; 87081; 87086; 88305; 88312; 88313; 93005; 93306; 96374; 96375; 99285; J1170; J2175; J2250; J2270; J2405; J7042; Q9964; Q9967

== ENCOUNTER 2017-10-28 20:48 | Emergency (ER) | payer MEDICAID ==
[~2017-10-28] VITALS: Ht 162.6 cm; Wt 55.3 kg
[~2017-10-28 20:48] MED LIST: DICY10CA59 PO; PANT40TA4 PO
[2017-10-28 21:04] VITALS: BP_SYST 149
[2017-10-28] MEDS ORDERED: ACETAMINOPHEN 500 MG TABLET PO ONE (22:45)
[2017-10-28 22:49] VITALS: BP_SYST 134
== END 2017-10-28 22:49 | disposition home or self-care (01) ==
LOC: SED 20:48
DX: D17.9 Benign lipomatous neoplasm, unspecified (principal); M79.601 Pain in right arm; R03.0 Elevated blood-pressure reading, without diagnosis of hypertension; K21.9 Gastro-esophageal reflux disease without esophagitis; Z79.899 Other long term (current) drug therapy; Z88.6 Allergy status to analgesic agent
CPT/HCPCS: 93971; 99284

== ENCOUNTER 2018-08-26 12:55 | Emergency (ER) | payer MEDICAID ==
[~2018-08-26] VITALS: Ht 162.6 cm; Wt 72.6 kg
[2018-08-26 13:05] VITALS: BP_SYST 121
[2018-08-26 15:10] VITALS: BP_SYST 122
== END 2018-08-26 15:10 | disposition home or self-care (01) ==
LOC: SED 12:55
DX: J02.9 Acute pharyngitis, unspecified (principal); K21.9 Gastro-esophageal reflux disease without esophagitis; Z90.49 Acquired absence of other specified parts of digestive tract; Z88.6 Allergy status to analgesic agent; Z79.899 Other long term (current) drug therapy
CPT/HCPCS: 99283